=== PATIENT | male | born 1965 | race Caucasian/White ===

== ENCOUNTER 2020-07-30 21:09 | Emergency (ER) | payer OTHER ==
[~2020-07-30 21:09] MED LIST: MOBIC7.5 MG PO; PREDNISONE 20MG20 MG PO
[2020-07-30 21:41] LABS: BASOPHIL 0.7 % (0-2); EOSINOPHIL 0.5 % (0-5); HCT 46.1 % (42.0-52.0); HGB 16.3 g/dl (13.2-18.0); MCH 34.1 pg (25.0-31.0); MCHC 35.4 g/dL (32.0-36.0); MCV 96.4 fL (78.0-100.0); MONOCYTE 8.7 % (0-12); MPV 9.5 fL (6.0-9.5); NEUTROPHIL 33.8 % (41-80); NRBC 0; PLT 177 K/uL (150-400); RBC 4.78 M/uL (4.70-6.00); WBC 7.5 K/uL (4.0-10.5)
[2020-07-30 21:51] LABS: INR 1.48 (0.9-1.2); PTT 36.3 SECONDS (22.2-34.7)
[2020-07-30 21:58] LABS: ALBUMIN 2.9 g/dL (3.4-5.0); BILIRUBIN - TOTAL 0.7 mg/dL (0.2-1.0); BUN/CREAT RATIO (CALC) 11.3 RATIO; CREATININE 0.62 mg/dL (0.67-1.17); GLOBULIN (CALCULATION) 5.6 g/dL; POTASSIUM 4.6 mmol/L (3.5-5.1); TOTAL PROTEIN 8.5 g/dL (6.4-8.2)
[2020-07-31 02:37] LABS: BILIRUBIN NEGATIVE (NEGATIVE); BLOOD NEGATIVE Ery/uL (NEGATIVE); CLARITY CLEAR (CLEAR); COLOR YELLOW (YELLOW); GLUCOSE (U) NORMAL (NORMAL); LEUKOCYTES NEGATIVE Leu/uL (NEGATIVE); NITRITE NEGATIVE (NEGATIVE); PROTEIN NEGATIVE (NEGATIVE); SPECIFIC GRAVITY 1.025 (1.001-1.030); UROBILINOGEN 0.2 mg/dL (0.2-1.0); pH 5.5 (5.0-9.0)
[2020-07-31 02:38] LABS: AMPHETAMINES NEGATIVE (NEGATIVE); BARBITURATES NEGATIVE (NEGATIVE); ECSTASY (MDMA) NEGATIVE (NEGATIVE); MARIJUANA (THC) NEGATIVE (NEGATIVE); METHADONE NEGATIVE (NEGATIVE); OPIATES NEGATIVE (NEGATIVE); OXYCODONE NEGATIVE (NEGATIVE)
== END 2020-07-31 06:30 | disposition home or self-care (01) ==
LOC: FER 21:09
PROVIDERS: Emergency Medicine Emergency Medical Services
DX: I63.9 Cerebral infarction, unspecified (principal); G81.91 Hemiplegia, unspecified affecting right dominant side; R29.810 Facial weakness; R29.704 NIHSS score 4; F10.129 Alcohol abuse with intoxication, unspecified; S66.911A Strain of unspecified muscle, fascia and tendon at wrist and hand level, right hand, initial encounter; Z86.73 Personal history of transient ischemic attack (TIA), and cerebral infarction without residual deficits; Z88.0 Allergy status to penicillin; Y90.8 Blood alcohol level of 240 mg/100 ml or more; W19.XXXA Unspecified fall, initial encounter; Z20.822 Contact with and (suspected) exposure to COVID-19
CPT/HCPCS: 36415; 70450; 71045; 80053; 80305; 81003; 82550; 84484; 85025; 85610; 85730; 93005; G0480; J7030; U0002